=== PATIENT | male | born 1965 | race Caucasian/White ===

== ENCOUNTER → 2023-10-19 10:46 | Outpatient (CLI) | payer OTHER, SELFPAY ==
[2023-10-19 20:08] LABS: Alanine Aminotransferase 27 IU/L (<50); Albumin 4.3 g/dL (3.5-5.0); Albumin Globulin Ratio 1.7 (1.0-2.8); Alkaline Phosphatase 81 U/L (38-126); Aspartate Aminotransferase 23 IU/L (17-59); BUN Creatinine Ratio 22.8 (6-22); Bilirubin Total 0.6 mg/dL (0.2-1.3); Blood Urea Nitrogen 21 mg/dL (9-20); Calcium 9.2 mg/dL (8.4-10.2); Carbon Dioxide 25 mmol/L (22-32); Chloride 108 mmol/L (98-107); Cholesterol 241 mg/dL (140-199); Estimated Glomerular Filt Rate > 60 mL/min (>60); Globulin 2.5 g/dL (1.7-4.1); Glucose 97 mg/dL (70-100); HDL Cholesterol 38 mg/dL (40-60); HEMOLYSIS < 15 (0-50); LDL Cholesterol Calculated 175 mg/dL (<100); Potassium 4.4 mmol/L (3.4-5.1); Sodium 138 mmol/L (137-145); Total Protein 6.8 g/dL (6.3-8.2); Triglycerides 138 mg/dL (35-150)
[2023-10-19 20:09] LABS: Add Manual Diff / Slide Review NO; Basophils Absolute Auto 100 /uL (0-100); Basophils Percent Auto 0.9 % (0-2); Eosinophils Absolute Auto 900 /uL (0-450); Hematocrit 43.5 % (41-53); Hemoglobin 14.7 g/dL (13.5-17.5); Lymphocytes Absolute Auto 1900 /uL (1100-4500); Lymphocytes Percent Auto 27.4 % (25-40); Mean Corpuscular HGB Conc 33.8 % (30-36); Mean Corpuscular Hemoglobin 28.9 PG (26-34); Mean Corpuscular Volume 85.4 fL (80-100); Monocytes Absolute Auto 600 /uL (0-900); Monocytes Percent Auto 9.2 % (3-14); Neutrophils Absolute Auto 3500 /uL (1500-7000); Neutrophils Percent Auto 49.5 % (50-75); Platelet Count 207 X10^3/uL (150-400); Red Cell Distribution Width 14.1 % (11.6-14.8)
[2023-10-19 20:39] LABS: Prostate Specific Antigen Scrn 1.62 ng/mL (0.1-4.0)
== END ==
PROVIDERS: PCP Family Medicine; Visit Provider Family Medicine
DX: Z13.6 Encounter for screening for cardiovascular disorders (principal); Z13.1 Encounter for screening for diabetes mellitus; Z12.5 Encounter for screening for malignant neoplasm of prostate; Z12.11 Encounter for screening for malignant neoplasm of colon
CPT/HCPCS: 80053; 80061; 85025; G0103

== ENCOUNTER 2024-09-15 06:25 | Day surgery (SDC) | payer OTHER, SELFPAY ==
[2024-09-15] VITALS (8 sets, daily range): BP systolic 92–127; BP diastolic 59–74; PULSE 60–82; RESP 12–17; TEMP 36.1–36.4; O2SAT 92–98
--- NOTE | 2024-09-15 08:18 | P.HP_ITS ---
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 do 07/27/24 07/27/24 Rx topical cream not use on face #60 grams sodium,potassium,mag sulfates 17.5 See Rx Instructions PO .COMPLEX 08/10/24 Rx gram-3.13 gram-1.6 gram oral soln #354 mL (Suprep Bowel Prep Kit) Allergies Allergy/AdvReac Type Severity Reaction Status Date / Time No Known Drug Allergies Allergy Verified 09/15/24 07:09 Review of Systems Review of Systems ROS: Yes All systems reviewed with the patient and are negative except as otherwise documented Gastrointestinal Gastrointestinal: Reports as per HPI Comments: Fecal occult positive. prep went ok Exam Vital Signs (past 8 hours): - 09/15/24 07:10 Temperature 97.0 F L Pulse Rate 82 Respiratory Rate 16 Blood Pressure 127/71 Pulse Oximetry 97 Oxygen Delivery Method Room Air Oxygen Delivery Method Room Air Const General: cooperative and healthy appearing Orientation: alert, awake and oriented x3 Neck Neck: normal visual inspection Chest Chest: normal inspection of the chest Resp Effort & Inspection: normal respiratory effort Cardio Rate: regular rate Back/Spine/Pelvis Back: normal to inspection Skin General: no rashes or lesions noted Assessment & Plan Assessment & Plan narrative: Colonoscopy, plan for scope today Time-Based Coding :: [TOTAL MINUTES] spent with patient and on the chart (including review of chart, obtaining history, exam, reviewing outside data, placing orders, documenting exam and treatment plan, and counseling patient) on [DATE]. [employer] Process Analyst Document charge(s): Yes
--- NOTE | 2024-09-15 09:08 | PM.OP.COLON ---
Operative Date/Time/Diagnoses Date of procedure: 09/15/24 Time of procedure: 09:08 Pre-op diagnosis: positive FIT Post-op diagnosis: same Procedure & Clinicians Study performed: Colonscopy Same procedure as scheduled: Yes Surgeon: Matty Johnson Procedure Notes SCOAP/Timeout: Performed Procedure in detail: Patient seen in the preop area, H and P updated, positive fecal occult testing. Patient reported prep was adequate. Patient brought back to procedure room, time-out was performed verifying correct patient procedure. He was given sedation. External rectal exam was performed with no identified fissures, or external hemorrhoids significance. Some skin tags. Digital rectal exam performed with no masses or blood. Colonoscope placed, colon insufflated, adequacy of prep was adequate but not perfect the scope was passed without difficulty to the cecum, verified by identification of the tinea. The scope was withdrawn with circumferential view of the colon, areas occluded by bowel prep or cleaned as much as possible. No lesions were identified upon removal of the scope. The scope was retroflexed in the rectum and no internal hemorrhoids were identified air was withdrawn from the colon, scope was withdrawn, and the patient was brought to the recovery area in stable condition. Scope withdrawal time: 6 minutes Findings: polyp(s) (none) Post-procedure Recommendations: Colonoscopy in 5 years Follow up: as needed Disposition: same day surgery
== END 2024-09-15 09:50 | disposition home or self-care (01) ==
PROVIDERS: PCP Family Medicine
DX: Z12.11 Encounter for screening for malignant neoplasm of colon (principal); R19.5 Other fecal abnormalities; K64.4 Residual hemorrhoidal skin tags
CPT/HCPCS: 45378; J2704